=== PATIENT | female | born 1995 | race African-American/Black ===

== ENCOUNTER 2018-06-15 20:48 | Emergency (ER) | payer MEDICAID ==
[~2018-06-15] VITALS: Ht 167.6 cm; Wt 131.4 kg
[~2018-06-15 20:48] MED LIST: IBUPROFEN600 MG PO; PERCOCET 5-3251 TAB PO; PRENATAL COMPLE1 TAB PO
[2018-06-15 20:52] VITALS: Ht 167.6 cm; Wt 131.4 kg
[2018-06-15] MEDS ORDERED: AMOXICILLIN500 M1 PO (21:29)
[2018-06-15] MEDS ORDERED: VOLTAREN75 MG PO (21:29)
[2018-06-15 22:05] VITALS: BP 115/74
== END 2018-06-15 22:06 | disposition home or self-care (01) ==
LOC: D.ER 20:48
DX: K04.7 Periapical abscess without sinus (principal); K08.89 Other specified disorders of teeth and supporting structures; F17.200 Nicotine dependence, unspecified, uncomplicated